=== PATIENT | male | born 1960 | race Caucasian/White ===

== ENCOUNTER 2019-07-16 09:37 | Day surgery (SDC) | payer OTHER ==
[2019-07-12 14:24] VITALS: BMI 34.0
--- NOTE | 2019-07-16 06:53 | HP ---
History & Physical Update - History History: No Change - Physical Physical: No Change - Assessment Assessment: No Change - Plan Plan: No Change (c/o cervical pain with RUE radiculopathy. Here today for C5/6, C6/7 ACDF)
[2019-07-16] MEDS ORDERED: GABAPENTIN 300 MG CAPSULE PO ONE (10:40)
[2019-07-16] MEDS ORDERED: GABAPENTIN 300 MG CAPSULE PO STA (10:42)
[2019-07-16] MEDS ORDERED: oxyCODONE HCL 10 MG SUSTAINED ACTING TABLET PO STA (10:42)
[2019-07-16] MEDS ORDERED: CEFAZOLIN 2 GM/D5W 2 GM/50 ML ML IVPB ONE (10:42)
[2019-07-16] MEDS ORDERED: GABAPENTIN 300 MG CAPSULE ONE (10:45)
[2019-07-16] MEDS ORDERED: oxyCODONE HCL 10 MG SUSTAINED ACTING TABLET ONE (10:45)
[2019-07-16] MEDS ORDERED: oxyCODONE HCL 10 MG SUSTAINED ACTING TABLET PO ONE (10:46)
[2019-07-16] MEDS ORDERED: BUPIVACAINE HCL/PF 0.5% (5 MG/ML) 30 ML VIAL IJ ONE (11:50)
[2019-07-16] MEDS ORDERED: MIDAZOLAM HCL 2 MG/2 ML SINGLE DOSE VIAL ONE ×2 (11:50→13:34)
[2019-07-16] MEDS ORDERED: LIDOCAINE 1%/EPI 1:100000 (20 ML MULTI DOSE VIAL) ONE (13:10)
[2019-07-16] MEDS ORDERED: THROMBIN (RECOMBINANT) 5,000 UNIT VIAL TP ONE (13:10)
[2019-07-16] MEDS ORDERED: SUCCINYLCHOLINE CHLORIDE 200 MG/10 ML SYRINGE ONE (13:34)
[2019-07-16] MEDS ORDERED: fentaNYL CITRATE 250 MCG/5 ML VIAL ONE (13:34)
[2019-07-16] MEDS ORDERED: PROPOFOL 20 ML ONE ×11 (13:34→15:33)
[2019-07-16] MEDS ORDERED: LIDOCAINE 1%/EPI 1:100000 (50 ML MULTI DOSE VIAL) INF ONE (14:45)
[2019-07-16] MEDS ORDERED: PHENYLEPHRINE HCL 10 MG/1 ML SINGLE DOSE VIAL ONE (14:46)
[2019-07-16] MEDS ORDERED: oxyCODONE HCL 5 MG TABLET PO PRN ×3 (15:34→16:27)
[2019-07-16] MEDS ORDERED: ONDANSETRON 4 MG/2 ML VIAL IVPUSH PRN ×2 (15:34→16:27)
[2019-07-16] MEDS ORDERED: ACETAMINOPHEN 1000 MG/100 ML VIAL (NON FORMULARY) IVPB ONE (15:34)
[2019-07-16] MEDS ORDERED: LACTATED RINGERS SOLUTION 1,000 ML IV SCH ×2 (15:45→16:30)
[2019-07-16] MEDS ORDERED: ACETAMINOPHEN INJECTION 100 ML IVPB ONE (16:46)
[2019-07-16] MEDS: CEFAZOLIN 1 GM/D5W 1 GM/50 ML BAG IVPB SCH (18:06)
--- NOTE | 2019-07-16 18:31 | OP ---
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
--- NOTE | 2019-07-16 18:33 | SURG ---
Surgery Vacuum Evaporation Operator Note Vacuum Evaporation Operator: Brandt Gates PA-C Date of Service: 07/16/19 Diagnosis: C4/5, C5/6 stenosis with upper extremity radiculopathy Procedure: Anterior Cervical discectomy/fusion C4/5, C5/6; allograft implant x 2; Neuromonitoring I was present for the entirety of the operative procedure. For further detail, please refer to operative report. Visit type - Case Type Case Type: Scheduled - New patient This patient is new to me today: Yes Date on this admission: 07/16/19
[2019-07-16] MEDS ORDERED: PT OWN MED DRAWER 7, Y5N ONE (20:44)
[2019-07-16] MEDS: oxyCODONE HCL 5 MG TABLET PO PRN (21:30)
[2019-07-16] MEDS: GABAPENTIN 300 MG CAPSULE PO SCH (21:30)
[2019-07-17] MEDS: CEFAZOLIN 1 GM/D5W 1 GM/50 ML BAG IVPB SCH (02:20)
[2019-07-17] MEDS: oxyCODONE HCL 5 MG TABLET PO PRN ×2 (03:49→10:52)
[2019-07-17 06:31] VITALS: BP 119/72; PULSE 85; TEMP 97.9
--- NOTE | 2019-07-17 08:05 | PN ---
Progress Note (short form) - Note Progress Note: 58yo M s/p C4-C6 ACDF POD 1. Pt seen and examined at bedside. Pt states that his neck pain is well controlled. Pt denies n/v, fever, chills, sob. Pt ambulating and tolerating diet. Last Vital Signs Temp Pulse Resp BP Pulse Ox 97.9 F 85 18 119/72 96 07/17/19 05:00 07/17/19 05:00 07/17/19 05:00 07/17/19 05:00 07/17/19 06:29 PE: Gen:A&O x 3 Resp: breathing comfortably Neck: incision clean with no erythema or discharge, minimal swelling. Nontender. Ext: no weakness or numbness. <Umesh Adam - Last Filed: 07/17/19 07:59> - Note Progress Note: Patient seen and examined Agree with above D/C Planning <Luis Bedoya - Last Filed: 07/17/19 13:58> Problem List - Problems (1) S/P cervical spinal fusion Assessment/Plan: Plan -pt appears to be doing well, will discharge home -cervical x-ray shows hardware in good position -pt should follow up with Dr. Bedoya in the office -Rx sent and discharge paperwork entered Pt discussed with Dr. Bedoya who agrees with plan Code(s): Z98.1 - ARTHRODESIS STATUS <Umesh Adam - Last Filed: 07/17/19 07:59>
--- NOTE | 2019-07-17 09:19 | PN ---
Progress Note (short form) - Note Progress Note: ANESTHESIA POSTOP: 58 yo male, POD#1, s/p lACDF Patient lying in bed. No complaints. Tolerating PO. Pain adequately controlled. VSS, Afebrile Continue current care, encouraged IS and ambulation. No anesthetic complications.
[2019-07-17] MEDS: GABAPENTIN 300 MG CAPSULE PO SCH (09:34)
[2019-07-17] MEDS: CELECOXIB 100 MG CAPSULE PO SCH ×2 (09:34→09:35)
[2019-07-17] MEDS ORDERED: MULTIVITAMINS (DAILY MVI) TABLET (FP) PO SCH (10:00)
--- NOTE | 2019-07-17 15:25 | OP ---
DATE OF OPERATION: 07/16/2019 PREOPERATIVE DIAGNOSIS: Cervical stenosis C5-6, C6-7. POSTOPERATIVE DIAGNOSIS: Cervical stenosis C5-6, C6-7. PROCEDURE PERFORMED: 1. Anterior cervical diskectomy and fusion C5-6, anterior cervical diskectomy and fusion C6-7. 2. Placement of instrumentation C5-7. SURGEON: Luis Bedoya MD SIMPLEX OPERATOR: MIKE Singh ESTIMATED BLOOD LOSS: 50 mL. INTRAVENOUS FLUIDS: Per Anesthesia. ANESTHESIA: General/MCP block. COMPLICATIONS: None. DISPOSITION: Patient brought to the PACU in stable condition. INDICATION FOR SURGERY: Patient is a 58-year-old gentleman who has been suffering from pain from his neck down his arm. X-rays and MRI were completed, which noted that he had spinal stenosis. He had gone through an exhaustive course of treatment for this, which included medications, physical therapy as well as injections. Unfortunately, his pain continued to persist despite all this. At this point, risks, benefits, and alternatives discussed, and the patient consented to surgery. DESCRIPTION OF PROCEDURE: Patient brought to the operating room by Anesthesia staff. After appropriate patient identification was performed, general anesthesia was given. MCP block was given. Patient was placed supine onto the OR bed with his arms tucked in the side. A shoulder roll was placed underneath his neck to extend his neck to the point that he can tolerate in the preoperative holding area. A needle was taped onto his neck to remy off the C5-6 level. X-ray was taken to confirm this was correct. Needle was removed, and 10 mL of lidocaine with epinephrine was injected into his neck at this time. His neck was prepped and draped in a sterile fashion. At this point, time-out was completed. A 2-inch incision was made on the left side of his neck. Dissection was carried down to the platysma. The platysma was cut in line with the skin incision. Next, the interval between the sternocleidomastoid and strap muscles was developed. Next, the interval between the carotid sheath and trachea and esophagus was developed. Peanuts were used to elevate it off the prevertebral fascia. A needle was placed into the C5-6 disk. X-ray was taken to confirm this was correct. Needle was removed, and longus colli muscles were elevated off. Retractor blades were placed in. A [place] pin was placed into the body of C5 and C7. A knife was used to incise the disk, and distraction was applied. At this point, the microscope was brought in. Using a series of pituitaries, Kerrisons, and curettes, a diskectomy was completed. The endplates were decorticated. Cages filled with bone graft were placed in. A screw was placed into the body of C5. A screw was placed into the body of C6. A screw was placed into the body of C7. [place] pins were removed. AP and lateral x-rays confirmed the instrumentation to be in good position. Final tightening was performed. The platysma was closed with 2-0 Vicryl suture. The skin was closed with 3-0 Monocryl suture. Dermabond was applied. Steri-Strips were applied. A sterile dressing was applied. Patient was placed supine on the OR bed. Brought to the PACU in stable condition. Janelle HERNANDEZ/[id number]
--- NOTE | 2019-07-18 18:24 | PATH ---
Surgical Pathology Report Patient Name: ELVA ALDRIDGE [facility]. Rec. #: [id number] /Age/Gender: 1960 (Age: 58) / M Account: [id number] Location: [facility] AMBULATORY Taken: 07/16/2019 Received: 07/16/2019 Reported: 07/18/2019 Physicians: Luis Bedoya M.D. Specimen(s) Received CERVICAL DISC C5-6, C9-7 Clinical History Cervical stenosis Final Diagnosis CERVICAL DISC, C5-C6, C6-C7, ANTERIOR CERVICAL DISCECTOMY, FUSION: BENIGN INTERVERTEBRAL DISC TISSUE. Electronically Signed Bonita Burris M.D. Gross Description Received in formalin labeled "C5-C6, C6-C7 cervical disc," is a 3.0 x 2.4 x 0.3 cm aggregate of timmons fragments of fibrocartilaginous tissue. A uniforms sales representative portion is submitted in one cassette. 07/17/2019 [facility]07/17/2019
== END 2019-07-17 10:59 | disposition home or self-care (01) ==
LOC: FASU 09:37 → FM/S 17:35 → FASU 07-17 10:59
PROVIDERS: ATTEND Orthopaedic Surgery Orthopaedic Surgery of the Spine
PROC: 0RG10A0 Fusion of Cervical Vertebral Joint with Interbody Fusion Device, Anterior Approach, Anterior Column, Open Approach (ICD-10-PCS; 2019-07-16)
PROC: 0RG10K0 Fusion of Cervical Vertebral Joint with Nonautologous Tissue Substitute, Anterior Approach, Anterior Column, Open Approach (ICD-10-PCS; 2019-07-16)
PROC: 0RB30ZZ Excision of Cervical Vertebral Disc, Open Approach (ICD-10-PCS; principal; 2019-07-16 14:45)
DX: M48.02 Spinal stenosis, cervical region (principal)
CPT/HCPCS: 22551; 22552; 22845; 22853; C1889; 36415; 72050-TC-FY; 76000-TC-FY; 86803; 87389; 88304-TC; 94760; 97116-GP; 97162-GP; J0131